=== PATIENT | female | born 2005 | race Caucasian/White ===

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

== ENCOUNTER 2025-08-27 08:09 | Emergency (ER) | payer OTHER, SELFPAY ==
[2025-08-27 08:13] VITALS: BP 155/98; PULSE 102; RESP 20; TEMP 36.9; O2SAT 100
--- NOTE | 2025-08-27 08:15 | ED.URI ---
HPI - URI/Sore Throat General Chief Complaint: Upper Respiratory Infection Stated Complaint: cold symptoms Time Seen by Provider: 08/27/25 08:31 Source: patient and RN notes reviewed Mode of arrival: ambulatory Limitations: no limitations History of Present Illness HPI Narrative: 20-year-old female presents concern for 5 day history of runny nose, stuffy nose, cough, sore throat. She denies fever, body aches, chills, sweats. She has been taking NyQuil and Ibuprofen. MD elicited complaint: cough, sore throat and nasal congestion Related Data Home Medications ?Medication ?Instructions ?Recorded ?Confirmed ?Last Taken ?Type albuterol sulfate 90 mcg/actuation inhalation 11/22/24 Unknown History aerosol inhaler naproxen .ROUTE PRN pain 08/27/25 Unknown History sumatriptan succinate PO PRN migraine headache 08/27/25 Unknown History Allergies Allergy/AdvReac Type Severity Reaction Status Date / Time No Known Allergies Allergy Verified 08/27/25 08:26 Review of Systems Review of Systems: CONSTITUTIONAL: Reports malaise. Denies chills, sweats, or fever. EYES: Denies visual changes, redness, or discharge. ENT: Reports rhinorrhea, congestion, otalgia and sore throat. CARDIOVASCULAR: Denies chest pain, palpitations, or edema. RESPIRATORY: Reports cough. Denies dyspnea. GASTROINTESTINAL: Denies abdominal pain, nausea, vomiting, diarrhea SKIN: Denies rash or itching. MUSCULOSKELETAL: Denies myalgia. NEUROLOGIC: Reports headache. All systems reviewed & are unremarkable except as noted in HPI and below PMFSH Past Medical History Medical History Anxiety Asthma Depression Emotional disorder Migraine PCOS (polycystic ovarian syndrome) Recurrent pneumonia Surgical History Surgical History History of tonsillectomy Family History Family History Mother Asthma Diabetes mellitus Depression Anxiety Thyroid disorder Sibling Asthma Diabetes mellitus Depression Anxiety Grandparent Asthma Lung cancer Bone cancer Liver cancer Cancer unknown cancer in female parts Social History Social History Smoking status: Never smoker Alcohol intake: never Substance use: never Occupation/Education: student Gender identity (if verbalized by the patient): Female Comments At time of signature, agree with nursing past medical, surgical, social and family history. There is no relevant family history pertinent to the presenting complaint Exam Narrative: GENERAL: Well-appearing, well-nourished, and in no acute distress. HEAD: Normocephalic EYES: PERRLA, conjunctivae clear ENT: Nares clear, turbinates edematous and erythematous, clear discharge. Mucous membranes moist. TM pearly allison with dull light reflex bilaterally; no tragal tenderness. Oropharynx not erythematous without lesions. Tonsils not enlarged and without exudate, no drooling, no hoarseness, no trismus, uvula midline. NECK: Supple. No lymphadenopathy CHEST: Clear to auscultation, breath sounds equal. No wheezing, rhonchi, rales, or stridor. No respiratory distress, speaks in full sentences. HEART: Regular rate and rhythm. No murmur heard. SKIN: Warm, dry, no rash. NEURO: Alert and oriented x3. PSYCH: Normal mood and affect Course Course Emergency Course: Patient is aware of diagnosis, understands and agrees to treatment plan. Anticipatory guidance given. Patient agrees to follow-up as directed and is aware of reasons to seek care at the emergency department. Portions of this record may have been created with voice recognition software Level of Care: Express [facility] [place] Visit MDM Differential Diagnosis Differential Diagnosis: I evaluated this patient in the express care. History is obtained from patient who is an independent historian and physical exam was performed.? Available medical records were reviewed. ? Exam findings and relevant testing show no acute concerns or changes; patient is non-toxic appearing and is in no distress. ? Differential diagnosis considered: [place] virus, strep pharyngitis, allergic rhinitis, upper respiratory tract infection, sinusitis, rhinosinusitis, nasopharyngitis. viral pharyngitis, otitis media, otitis externa, pneumonia, bronchitis, viral cough syndrome, viral syndrome, and influenza. Differential diagnosis and treatment plan were discussed with the patient. Patient agrees with discussion and after shared medical decision making agrees with plan of care. All questions were answered to the patient's satisfaction. Patient is appropriate for outpatient treatment and follow-up. Discharge Plan Discharge Clinical Impression: Upper respiratory infection Patient Disposition: Home Condition: Stable Instructions: Upper Respiratory Infection (ED) Additional Instructions: Your rapid strep swab was negative today at [facility]. A throat culture will be sent to the laboratory for further testing. If the test is positive, you will receive a phone call within 48 hours and an appropriate antibiotic will be initiated at that time. Your symptoms are likely due to a viral illness, which is not treated with antibiotics. Viral symptoms can be present for up to a few weeks. -Alternate Tylenol and Motrin per package directions for fever or pain. -Antihistamine medication such as Benadryl at night and Zyrtec during the day can help improve symptoms. -Eat and drink things that are easy to swallow, like tea or soup, or popsicles to suck on. -Oral rinses such as: Salt water gargles and/or may use topical anesthetic (eg. Chloraseptic spray) or lozenges to relieve dryness or throat pain). -Frequent hand washing or hand chemical manager is one of the best ways to prevent spread of infection. -Follow up with primary care provider in 2-3 days if condition is not improving; or seek ER visit if you have trouble breathing, cannot drink enough fluids, have muffled voice, difficulty opening your mouth, or severe swelling. Patient Language: Frisian Prescriptions: New pseudoephedrine HCl [12 Hour Decongestant] 120 mg tablet extended release 120 mg PO Q12H PRN (Reason: nasal congestion) Qty: 20 0RF dextromethorphan-guaifenesin [Mucinex DM] 60-1,200 mg tablet extended release 12 hr 1 tablet PO Q12H Qty: 12 0RF No Action ondansetron 4 mg tablet,disintegrating 4 mg PO Q6H PRN (Reason: nausea and vomiting) Qty: 20 0RF albuterol sulfate 90 mcg/actuation HFA aerosol inhaler INHALATION sumatriptan succinate PO PRN (Reason: migraine headache) naproxen .ROUTE PRN (Reason: pain) Follow-up/Referrals: PHYSICIAN NOT ON STAFF,NONSTAFF [Primary Care Provider] Time of Disposition: 08:49
[2025-08-27 08:49] LABS: EDSTREPNEGPOS1 Negative (Negative)
== END 2025-08-27 08:50 | disposition home or self-care (01) ==
PROVIDERS: Emergency Provider Nurse Practitioner
DX: J06.9 Acute upper respiratory infection, unspecified (principal); J45.909 Unspecified asthma, uncomplicated; E28.2 Polycystic ovarian syndrome
CPT/HCPCS: 87081; 87880; 99213; G0463

== ENCOUNTER 2025-09-08 17:58 | Emergency (ER) | payer OTHER, SELFPAY ==
--- OUTSIDE RECORDS SUMMARY | 2025-09-08 18:00 | XMS_ITS | Clinical Summary ---
Author Organization [facility] Address [address] [place] [address] Care Team Providers Care Animation Producer Name Role Phone Rosalba Lauren MD Primary Care Provi marcela Allergies Active Allergy Reactions Criticality Noted Date Comments Basil Anaphylaxis High 07/13/2025 Jojoba Oil Swelling Medium 03/29/2023 Lactose Stomach upset Low 06/10/2021 Tree Nuts Anaphylaxis High 07/13/2025 Medications albuterol HFA (PROVENTIL HFA,VENTOLIN HFA) 90 mcg/actuation inhaler inhale 2 puff by inhalation route every 4 - 6 hours as needed 1 Inhaler 0 07/30/20 15 Active ipratropium-albut Saige (DUO-NEB) 0.5-2.5 mg/3 mL nebulizer solution Inhale 3 mL 07/25/20 17 Active norethindrone (MICRONOR) 0.35 mg tablet TAKE 1 TABLET BY MOUTH EVERY DAY (START ON DAY 1 OF MENSTRUAL CYCLE) 04/02/20 22 Active ondansetron ODT (ZOFRAN-ODT) 8 mg disintegrating tablet Take 1 tablet (8 mg total) by mouth every 8 (eight) hours as needed 06/10/20 21 Active sertraline (ZOLOFT) 50 mg tablet Take 1 tablet (50 mg total) by mouth daily 04/02/20 22 Active SUMAtriptan (IMITREX) 50 mg tablet Take 1 tablet (50 mg total) by mouth 06/10/20 21 Active ergocalciferol (VITAMIN D) 50,000 unit capsule Take 1 capsule (50,000 Units total) by mouth 02/05/20 23 Active ketorolac (TORADOL) 10 mg tablet Take 1 tablet (10 mg total) by mouth every 6 (six) hours as needed for pain 20 tablet 11/23/19 25 Active azithromycin (Zithromax Z-Blue) 250 mg tabletIndications :Acute bronchitis, unspecified organism Take 1 tablet (250 mg total) by mouth daily Take first 2 tablets together, then 1 every day until finished. Collaborating physician Xander Robison MD 6 tablet 07/13/20 25 Active albuterol 2.5 mg /3 mL (0.083 %) nebulizer solutionIndicatio ns:Asthma with acute exacerbation, unspecified asthma severity, unspecified whether persistent Take 3 mL (2.5 mg total) by nebulization every 6 (six) hours as needed for wheezing (And chest tightness) Collaborating physician Xander Robison MD 75 mL 1 07/13/20 25 2025 Active guaiFENesin (ROBITUSSIN) syrup 100 mg/5 mLIndications:Acu te bronchitis, unspecified organism,Asthma with acute exacerbation, unspecified asthma severity, unspecified whether persistent Take 20 mL (400 mg total) by mouth 4 (four) times a day as needed for cough or congestion Collaborating physician Xander Robison MD 24 mL 07/13/20 25 Active ipratropium (ATROVENT) 0.02 % nebulizer solutionIndicatio ns:Exacerbation of asthma, unspecified asthma severity, unspecified whether persistent Take 2.5 mL (0.5 mg total) by nebulization every 6 (six) hours Add to albuterol nebulizer solution and do a nebulizer treatment every 6 hours prn wheezing and bronchospastic cough. Collaborating physician Xander Robison MD 75 mL 07/21/20 25 Active fluticasone propion-salmetero L (ADVAIR DISKUS) 250-50 mcg/dose diskus inhalerIndication s:Exacerbation of asthma, unspecified asthma severity, unspecified whether persistent,Acute bronchospasm Inhale 1 puff 2 (two) times a day Rinse mouth with water after use. Do not swallow. Use daily as directed to help manage asthma. Collaborating physician Xander Robison MD 1 each 1 07/21/20 Active EPINEPHrine 0.3 mg/0.3 mL auto-injection syringeIndication s:Anaphylaxis Inject 0.3 mL (0.3 mg total) into the muscle as instructed as needed for anaphylaxis 2 each 08/13/20 Active predniSONE (DELTASONE) 20 mg tablet as directed 07/25/20 17 2024 Discontin ued(Dupli karri order) predniSONE (DELTASONE) 20 mg tablet Take 2 tablets (40 mg) by mouth daily for 5 days 10 tablet 08/13/202024 Active Problems Problem Noted Date Diagnosed Date Acute bronchospasm 07/21/2025 Acute bronchitis 07/13/2025 Exacerbation of asthma 07/13/2025 Bipolar II disorder 01/03/2023 Screening for cardiovascular condition Anxiety 01/15/2021 Depression 01/15/2021 Spells of decreased [...] persistent asthma without complication Hay fever 11/02/2013 Encounters Date Type Department Care Team Description 08/13/2025 3:43 AM [facility] - 08/13/2025 4:58 AM [facility] Emergency Department [address] [place] [id number] Lele Kirk MD Allergic reaction, initial encounter (Primary Dx) Discharge Disposition: Discharge to home or self care 07/21/2025 6:09 PM [facility] - 07/21/2025 7:04 PM [facility] Emergency Department [address] [place] [id number] Exacerbation of asthma, unspecified asthma severity, unspecified whether persistent (Primary Dx); Acute bronchospasm Discharge Disposition: Discharge to home or self care 07/13/2025 4:29 PM T - 07/13/2025 5:27 PM [facility] Emergency Department [address] [place] [phone] Acute bronchitis, unspecified organism (Primary Dx); Asthma with acute exacerbation, unspecified asthma severity, unspecified whether persistent Discharge Disposition: Discharge to home or self care from Last 3 Months Medical History Medical History Date Comments Hx Other Medical A- Asthma .Janessa janeth Babb, albuterol prn; Comments: SUMANTH 07/30/2015 - Asthma Family History Medical History [...] Tobacco: Never Tobacco Cessation:Counseling Given: Not Answered Personal Safety Answer Date Recorded Have you ever been in or are you currently in a harmful physical or emotional relationship or is someone making you feel afraid or unsafe? Denies 08/13/2025 Comments No Sex and Gender Information Value Date Recorded Sex Assigned at Not on file Legal Sex Female 11:29 PM DATA PROCESSING SPECIALIST Gender Identity Not on file Sexual Orientation Not on file Obstetrics History Para Term AB IAB SAB Ectopic Multiple Livin g Live Births 0 0 0 0 0 0 0 0 0 0 0 Last Filed Vital Signs Vital Sign Reading Time Taken Comments Blood Pressure 131/92 08/13/2025 4:30 AM DATA PROCESSING SPECIALIST Pulse 89 08/13/2025 4:30 AM DATA PROCESSING SPECIALIST Temperature 36.3 C (97.4 F) 08/13/2025 3:37 AM DATA PROCESSING SPECIALIST Respiratory Rate 23 08/13/2025 4:30 AM DATA PROCESSING SPECIALIST Oxygen Saturation 98% 08/13/2025 4:30 AM DATA PROCESSING SPECIALIST Inhaled Oxygen Concentration - - Weight 127 kg (279 lb 15.8 oz) 08/13/2025 3:37 A M DATA PROCESSING SPECIALIST Height 154.9 cm (5' 1) 07/13/2025 3:05 PM CDT Body Mass Index 52.9 07/13/2025 3:05 PM CDT Plan of Treatment Health Maintenance Due Date Last Done Comments Depression Screening 2005 Hepatitis C Screening 2005 Pneumococcal vaccine <65 (1 of 1 - PPSV23, PCV20, or PCV21) 2011 01/17/2007, 01/12/2006, 2005, Additional history exists HPV Vaccines (1 - 3-dose series) 2020 Regular Well Visit/Exam 18-64 2023 Influenza Vaccine (#1) 2025 08/17/2011 DTaP/Tdap/Td Vaccine (7 - Td or Tdap) 06/07/2026 06/07/2016, 04/10/2010, 01/17/2007, Additional history exists Hepatitis B Screening Completed 01/12/2006 , 2005, 2005, Additional history exists Varicella Vaccines Completed 04/10/2010, 06/21/2006 Meningococcal Vaccine Completed 05/18/2021, 016 Meningococcal B Vaccine Completed 11/04/2021, 05/18 Procedures Procedure Name Priority Date/Time Associated Diagnosis Comments XR CHEST PA LATERAL 2 VIEWS ED 07/13/2025 4:01 PM CDT INFLUENZA A/B, RSV, AND COVID-19 PCR STAT 07/13/2025 3:11 PM CDT from Last 3 Months Results * XR Chest Pa Lateral 2 Vw (07/13/2025 4:01 PM CDT) Anatomical Region Laterality Modality Body, Chest N/A Computed Radiogr aphy 07/13/2025 4:19 PM CDT Impressions 07/13/2025 4:19 PM CDT EXAMINATION: XR CHEST PA LATERAL 2 VIEWS HISTORY: Productive cough with chest discomfort TECHNIQUE: 2 views of the chest COMPARISON: None FINDINGS: No focal opacity. No pleural effusion or pneumothorax. The cardiomediastinal silhouette is within normal limits. No acute osseous abnormality. IMPRESSION: No acute cardiopulmonary findings. Electronically signed by: Edinson Don M.D. Narrative 07/13/2025 4:19 PM CDT EXAMINATION: 2 view chest radiograph Procedure Note Edinson Don MD - 07/13/2025 EXAMINATION: 2 view chest radiograph IMPRESSION: EXAMINATION: XR CHEST PA LATERAL 2 VIEWS HISTORY: Productive cough with chest discomfort TECHNIQUE: 2 views of the chest COMPARISON: None FINDINGS: No focal opacity. No pleural effusion or pneumothorax. The cardiomediastinal silhouette is within normal limits. No acute osseous abnormality. IMPRESSION: No acute cardiopulmonary findings. Electronically signed by: Edinson Don M.D. Dominick ALACRON IMG XR PROCEDURES Final Resu lt * Influenza A/B, RSV, and COVID-19 PCR Nasopharyngeal (07/13/2025 3:11 PM CDT) COVID-19 RNA Negative Negative Influenza A RNA Negative Negative [facility] ([place]) Influenza B RNA Negative Negative [facility]) RSV RNA Negative Negative [facility] ([place]) Comment: Interpretive data: Testing performed by [facility]. This test is performed using the [employer] Xpert Xpress CoV-2/Flu/RSV plus assay. This is a multiplex, real- time reverse transcriptase PCR assay intended for the qualitative detection of nucleic acid from SARS-CoV-2, influenza A, influenza B, and respiratory syncytial virus. This assay has been cleared by the [place] Food and Drug administration. The performance characteristics have been verified by the [facility]. Results must be considered in the clinical context, and a negative result does not rule out infection. Interpretive Data last revised 2023 Nasopharyngeal 07/13/2025 3: 11 PM CDT 07/13/2025 3:13 PM CDT Narrative [facility] ([place]) - 07/13/2025 3:52 PM CDT Is the Patient experiencing symptoms consistent with COVID?->Yes Dominick [facility] MICROBIOLOGY - GENERAL O RDERABLES Final Result [facility] ([place]) [address] [facility] [place] [address] from Last 3 Months Insurance IDPA IDWV [facility] IDPA Care Teams Animation Producer Relationship Specialty Start Date End Date Rosalba Lauren MD [address] [place] [address] DR PARSONS B [address] [address] PCP - General Family Medicine 07/21/25
--- OUTSIDE RECORDS SUMMARY | 2025-09-08 18:00 | XMS_ITS | Clinical Summary ---
Author Organization [facility] Address [address] [place] [address] Phone Care Team Providers Care Sales Support Rep Name Role Phone Cony Robles MD Primary Care Provider Unavai lable Allergies No known active allergies Medications beclomethasone [...] for Pain. 20 Tab 0 6 Active ipratropium-alb uterol (DUO-NEB) 0.5-2.5 (3) MG/3ML [...] Mild or more severe pain. 15 Tablet 4 Active ondansetron (ZOFRAN) 4 MG Tablet Take 1-2 Tablets by mouth every 8 hours as needed for Nausea - 1st line. 10 Tablet 5 Active meclizine (ANTIVERT) 25 MG Tablet Take 1 Tablet by mouth 3 times daily as needed for Dizziness. 30 Tablet 5 Active Active Problems Problem Noted Date Diagnosed Date Bipolar II disorder, most re cent episode depressed, moderate severity, with mood-incongruent psychotic features 01/03/2023 Depression 01/15/2021 Anxiety 01/15/2021 Family History Medical History Relation Name Comments ADD / ADHD Brother 1 Graham (26) Autism Brother 1 Graham (26) Depression Brother 1 Graham (26) No Known Problems Brother 2 Alok (17) No Known Problems Father Compa (48) Bipolar Disorder Maternal Grandmother Bipolar Disorder Mother Patsy (46) Anxiety disorder Sister Marianna (28) Depression Sister Marianna (28) Relation Name Status Comments Brother 1 Graham (26) Alive Brother 2 Alok (17) Alive Father oCmpa (48) Alive Maternal Grandmother Alive Mother Patsy (46) Alive Sister Marianna (28) Alive Social History Tobacco Use Types Packs/Day Years Used Date Smoking Tobacco: Never Smokeless Tobacco: Never Alcohol Use Standard Drinks/Week Comments Yes 0 (1 standard drink = 0.6 oz pur e alcohol) Rarely PHQ-2 Answer Date Recorded Total Score - Questions 1-9 17 12/19 Sexually Active Control Partners Comments Yes Other Male Comments Unknown Sex and Gender Information Value Date Recorded Sex Assigned at Female 05/02/2023 2:39 PM CDT Legal Sex Female 11:31 PM CDT Gender Identity Female 05/02/2023 2:39 PM CDT Sexual Orientation Not on file Last Filed Vital Signs Vital Sign Reading Time Taken Comments Blood Pressure 126/84 03/02/2025 6:30 AM CDT Pulse 92 03/02/2025 6:30 AM CDT Temperature 36.9 C (98.4 F) 03/02/2025 2:51 AM CDT Respiratory Rate 18 03/02/2025 6:30 AM CDT Oxygen Saturation 99% 03/02/2025 6:30 AM CDT Inhaled Oxygen Concentration - - Weight 124.6 kg (274 lb 11.1 oz) 03/02/2025 2:51 AM CDT Height 154.9 cm (5' 1) 03/02/2025 2:51 AM CDT Body Mass Index 51.9 03/02/2025 2:51 AM CDT Plan of Treatment Health Maintenance Due Date Last Done Comments Hepatitis C Virus (HCV) Screening 2005 Human Papillomavirus (HPV) Immunization (1 - Risk 3-dose series) 2016 Influenza Immunization (#1) 2025 08/17/2011 SARS-COV-2 Immunization ( - 2024- season) 2025 Respiratory Syncytial Virus (RSV) Immunization (Adult) (1 [...] 01/12/2006, 2005, Additional history exists Varicella Immunization Completed 04/10/2010, 2005 DTaP/Tdap/Td Immunization Discontinued 2015, 04/10/2010, [...] months Anxiety On track(2023 1:26 PM CDT) No Octavia Lal LCSW Note: to have reduction of anxiety and depression symptoms. Goal Reviewed with: patient today Readiness to change: Thinking about making a change Department associated with goal: [facility] Steps to achieve goal: [...] and or cope with anxiety and depression. ANXIETY Anxiety On track(2024 11:15 AM CDT) Yes Slime Mckeon LCPC Note: Not sure Wants to get coping mechanisms for depression and anxiety Goal/Objective: Decrease symptoms. Anticipated Time Frame for Goal Completion: 6 months Goal Reviewed with: patient Readiness to change: Ready to change Department associated with goal: [facility] Steps to achieve goal: will attend counseling/psychotherapy sessions at least once monthly, at least 6 sessions, utilizing individual and/or group sessions to express thoughts and feelings. to identify, verbalize and process at least [...] Behavioral Health On track(2023 1:26 PM CDT) No Octavia Lal, RESIDENTIAL MANAGER Note: open up in a safe in environment Goal Reviewed with: patient Readiness to change: Thinking about making a change Department associated with goal: [facility] Steps to achieve goal: [...] months in 30-45 minute sessions Insurance MEDICAID [employer] [place] Care Teams Sales Support Rep Relationship Specialty Start Date End Date Cony Robles MD PCP - General Family Medicine 12/17/24
[2025-09-08 18:06] VITALS: BP 127/89; PULSE 115; RESP 20; TEMP 36.1; O2SAT 98
--- NOTE | 2025-09-08 18:32 | ED_ITS ---
HPI - Nausea/Vomiting/Diarrhea General Chief complaint: Upper Respiratory Infection Stated complaint: Vomiting/Nausea/Diarrhea Time Seen by Provider: 09/08/25 18:22 Source: patient, RN notes reviewed and old records reviewed Mode of arrival: ambulatory Limitations: no limitations History of Present Illness HPI Narrative: 20 year old female accompanied by significant other with complaints of 2 week duration of sinus congestion and drainage and some sore throat also for 2 weeks. Patient reports that today she has had vomiting and diarrhea and some nausea and feels a little dizzy. Patient reports that she has not been able to eat or drink today, appetite poor. Patient reports that she has some lower abdomen cramping with diarrhea. Patient reports that she has taken Benadryl and Ibuprofen for her symptoms MD elicited complaint: nausea, vomiting, diarrhea and other (2 weeks congestion and sore throat) Onset (ago): week(s) ([address] and congestion,today nausea vomiting and diarrhea) Description of vomiting: food contents Description of diarrhea: watery Associated nausea: Yes Associated abdominal pain: Yes Location of pain: other (lower abdomen cramping) Pain consistency: intermittent Pain scale (0-10): 4 Treatment prior to arrival: NSAIDs and other (Benadryl) Related Data Home Medications ?Medication ?Instructions ?Recorded ?Confirmed ?Last Taken ?Type albuterol sulfate 90 mcg/actuation inhalation 11/22/24 Unknown History aerosol inhaler Zofran 09/08/25 Unknown History ketorolac 10 mg tablet mg 09/08/25 Unknown History sumatriptan 09/08/25 Unknown History Allergies Allergy/AdvReac Type Severity Reaction Status Date / Time No Known Allergies Allergy Verified 09/08/25 19:01 Review of Systems Review of Systems: CONSTITUTIONAL: Denies fever, chills, or sweats. EYES: Denies visual changes, redness, or discharge. ENT: states rhinorrhea, congestion,+ sore throat, no otalgia. CARDIOVASCULAR: Denies chest pain, palpitations, or edema. RESPIRATORY: reports cough no dyspnea. GASTROINTESTINAL: crampy lower abdominal pain,+ nausea, vomiting, or diarrhea. GENITOURINARY: Denies dysuria or hematuria. SKIN: Denies rash or itching. MUSCULOSKELETAL: Denies back pain, joint pain, or myalgia. NEUROLOGIC: Denies headache, numbness, or weakness. PSYCHIATRIC: Denies anxiety or depression. All systems reviewed & are unremarkable except as noted in HPI and below PMFSH Past Medical History Medical History Recurrent pneumonia PCOS (polycystic ovarian syndrome) Emotional disorder Depression Migraine Anxiety Asthma Surgical History Surgical History History of tonsillectomy Family History Family History Mother Asthma Diabetes mellitus Depression Anxiety Thyroid disorder Sibling Asthma Diabetes mellitus Depression Anxiety Grandparent Asthma Lung cancer Bone cancer Liver cancer Cancer unknown cancer in female parts Social History Social History Smoking status: Never smoker Alcohol intake: never Substance use: never Occupation/Education: student Gender identity (if verbalized by the patient): Female Comments At time of signature, agree with nursing past medical, surgical, social and family history. There is no relevant family history pertinent to the presenting complaint Exam Narrative: GENERAL: Well-appearing, well-nourished, morbidly obese,and in no acute distress. HEAD: Normocephalic, atraumatic. EYES: PERRLA and EOMI. ENT: Nares clear, clear rhinorrhea no epistaxis. Mucous membranes moist.TM's normal throat red with no tonsils present NECK: Supple.no lymphadenopathy CHEST: Clear to auscultation. No respiratory distress.mild cough noted HEART: Regular rate and rhythm. No murmur heard. Normal peripheral pulses. ABDOMEN: Soft, nontender to palpation no McBurney point tenderness, nondistended, normal active bowel sounds.crampy lower abdominal pain voiced, nausea and vomiting and diarrhea. EXTREMITIES: Normal range of motion. No edema. SKIN: Warm, dry, no rash. NEURO: No focal deficits. Alert and oriented x3. Course Course Level of Care: Express Care Visit Vital Signs Vital signs: Vital Signs Temperature 36.1 C L 09/08/25 18:06 Pulse Rate 115 H 09/08/25 18:06 Respiratory Rate 20 09/08/25 18:06 Blood Pressure 127/89 09/08/25 18:06 Pulse Oximetry 98 09/08/25 18:06 Oxygen Delivery Room Air 09/08/25 18:06 Temperature 36.1 C L 09/08/25 18:06 Pulse Rate 115 H 09/08/25 18:06 Respiratory Rate 20 09/08/25 18:06 Blood Pressure 127/89 09/08/25 18:06 Pulse Oximetry 98 09/08/25 18:06 Oxygen Delivery Room Air 09/08/25 18:06 reviewed [facility] Narrative Medical decision making narrative: Patient presents to [facility] care with 2 weeks of sore throat, nasal congestion with drainage and some cough, today with nausea vomiting and diarrhea and lower abdomen cramping. Treated with Zofran in clinic and fluid challenge given with patient woodrow to drink water without emesis. Patient does have Zofran at home. Patient is aware of diagnosis, understands and agrees to treatment plan.? Anticipatory guidance given.? Patient agrees to follow-up as directed and is aware of reasons to seek care at the emergency department. Differential Diagnosis Differential Diagnosis: Differential diagnostic considerations for nausea/vomiting/diarrhea include gastroenteritis, appendicitis, IBD, intestinal obstruction, clostridium difficile, food poisoning, peritonitis, IBS, dehydration, ischemic bowel, ACS, pancreatitis, drug induced nausea/vomiting. Differential diagnostic considerations for upper respiratory infection include upper respiratory infection, croup, otitis media, sinusitis, viral infection, bronchitis, influenza, pharyngitis, strep, uvulitis.? Lab Data [facility] Lab Attestation statement: I personally reviewed the patient's lab results. Lab results narrative: strep screen negative culture sent, Influenza A&B negative, COVID antigen negative, urine dip, urine culture sent urine dip: glucose negative bilirubin negative ketone negative specific gravity greater than or equal to 1 0.030 blood 3+ pH 5.5 protein 1+ urobilinogen 0.2 nitrite negative leukocyte negative. urine is allison clear, patient is on menses Labs: Lab Results 09/08/25 Range/Units 18:58 POC Urine Color Allison POC Urine Clarity Clear POC Urine pH 5.5 POC Ur Specif [place] 1.030 POC Urine Protein 1+ (Negative) POC Ur Glucose (UA) Negative (Negative) POC Urine Ketones Negative (Negative) POC Urine Blood 3+ (Negative) POC Urine Nitrite Negative (Negative) POC Urine Bilirubin Negative (Negative) POC Urine Urobilinogen 0.2 POC U Leukocyte Esteras Negative (Negative) POC Influenza A Ag Negative (Negative) POC Influenza B Ag Negative (Negative) POC SARS CoV-2 Ag Negative (Negative) POC Grp A Strep Screen Negative (Negative) reviewed Critical Care Time Critical Care Time Critical Care Time: No Discharge Plan Discharge Clinical Impression: Nausea, vomiting, and diarrhea URI (upper respiratory infection) Qualifiers: URI type: unspecified URI Qualified Code(s): J06.9 - Acute upper respiratory infection, unspecified Patient Disposition: Home Condition: Stable Instructions: Pharyngitis (ED), Clear Liquid Diet (ED) Additional Instructions: Increase fluids especially juices and water Pljk-jzv-gopmhfr cough and cold medicine of your choice for your symptoms Zyrtec, Claritin, or Katy daily heat to the face 20-30 minutes 4-6 times a day for pain Salt water gargles, throat lozenges or throat sprays as desired Your strep test today was negative. A throat culture will be sent to the laboratory for further testing. IF the test is positive, you will receive a phone call within 48 hours and an appropriate antibiotic will be initiated at that time. Clear liquids for the next 8-10 hours, then advance to a bland diet as tolerated A bland diet can consist of--BRAT diet which is bananas, rice, applesauce, and toast Avoid fried, greasy, fatty, fried foods Avoid caffeine, nicotine, and alcohol Return to your regular diet in the next 3-4 days Medication as directed for nausea and vomiting Sometimes ibuprofen/Aleve can cause increased stomach upset Lvzm-bzm-iwlvadl Imodium if develop diarrhea Follow-up with her PCP if continued problems or uncontrolled pain Patient Language: Kyrgyz Prescriptions: No Action ketorolac 10 mg tablet Zofran sumatriptan albuterol sulfate 90 mcg/actuation HFA aerosol inhaler INHALATION Follow-up/Referrals: UNKNOWN,DOCTOR [Primary Care Provider] Stand Alone Forms: Work/School Release IP Time of Disposition: 19:02 Quality [place] Coma Scale Eyes: Open Verbal: Oriented and Alert Motor: Follows Commands [place] Coma Total Score: 15
[2025-09-08] MEDS: ONDANSETRON HCL ODT 4 MG TABLET SUBLINGUAL (18:42)
[2025-09-08 19:00] LABS: EDCOVIDSCREEN Negative (Negative); EDINFLUASCREEN Negative (Negative); EDINFLUBSCREEN Negative (Negative); EDSTREPNEGPOS1 Negative (Negative)
[2025-09-08 19:02] LABS: EDUAAPPEAR Clear; EDUABILI Negative (Negative); EDUABLOOD 3+ (Negative); EDUACOLOR1 Amber; EDUAGLUCOSE Negative (Negative); EDUAKETONE Negative (Negative); EDUALEUKO Negative (Negative); EDUANITRATE Negative (Negative); EDUAPH 5.5; EDUAPROTEIN 1+ (Negative); EDUASPGRAVITY 1.030; EDUAUROBILI 0.2
== END 2025-09-08 19:15 | disposition home or self-care (01) ==
PROVIDERS: Emergency Provider Registered Nurse
DX: R11.2 Nausea with vomiting, unspecified (principal); R19.7 Diarrhea, unspecified; J06.9 Acute upper respiratory infection, unspecified; Z20.822 Contact with and (suspected) exposure to COVID-19; J45.909 Unspecified asthma, uncomplicated; E28.2 Polycystic ovarian syndrome
CPT/HCPCS: 81003; 87081; 87086; 87426; 87804; 87880; 99213; A9270; G0463